=== PATIENT | female | born 1950 | race Caucasian/White ===

== ENCOUNTER → 2017-01-05 | Outpatient (CLI) | payer OTHER ==
[~2017-01-05] MED LIST: CALC-348 PO; CHOL100010 PO; MULT-190 PO; OMEG10007 PO; PTDOPS OP; QVRINH80 INH; SIMV40TA4 PO
--- NOTE | 2017-01-05 16:37 | MAMMOGRAPHY REPORT ---
BILATERAL DIGITAL SCREENING MAMMOGRAM WITH CAD: 01/05/2017 CLINICAL HISTORY: Routine screening examination. TECHNIQUE: Bilateral CC and MLO views were obtained. Current study was also evaluated with a Comput er Aided Detection (CAD) system. COMPARISON: Comparison is made to exams dated: 01/03/2016 mammogram, 01/02/2015 mammogram, 12/07/2013 mammogram, 12/05/2012 mammogram, 12/04/2011 mammogram, and 12/03/2010 mammogram - [facility]. BREAST COMPOSITION: There are scattered areas of fibroglandular density in both breasts. FINDINGS: There is a stable grouping of punctate microcalcifications in the lateral left breast that is unchanged dating back to at least 11/28/2007, therefore likely benign. There are a few stable r ound micro-calcifications in the left breast, and vascular calcification in the right breast. No ne w suspicious mass, architectural distortion or cluster of microcalcifications is seen. IMPRESSION: ACR BI-RADS CATEGORY 1: NEGATIVE There is no mammographic evidence of malignancy. A 1 year screening mammogram is recommended. The p atient will receive written notification of the results. Approximately 10% of breast cancers are not detected with mammography. A negative mammographic repor t should not delay biopsy if a clinically suggestive mass is present. Gracia Archuleta M.D. ay/:01/05/2017 15:51:23 Business Communications Instructor: Aparna GRIFFITH(R)(M), [facility] letter sent: Normal 1/2 BI-RADS Code: ACR BI-RADS Category 1: Negative
== END | disposition home or self-care (01) ==
LOC: C.MAMM 10:07
PROVIDERS: ATTEND Nurse Practitioner
DX: Z12.31 Encounter for screening mammogram for malignant neoplasm of breast (principal)

== ENCOUNTER → 2017-01-21 | Outpatient (CLI) | payer OTHER ==
[~2017-01-21] MED LIST changes: +ALBU18002 INH; +ALEN40TA2 PO; +CHOL1TAB42 PO; +MULT-506 PO; +OLOP0.1S3 OP; +PRED20TA PO; +SIMV40TA2 PO
== END | disposition home or self-care (01) ==
LOC: C.MAMM 11:21
PROVIDERS: ATTEND Nurse Practitioner
DX: M81.0 Age-related osteoporosis without current pathological fracture (principal); M85.89 Other specified disorders of bone density and structure, multiple sites

== ENCOUNTER → 2017-03-03 | Outpatient (CLI) | payer OTHER ==
[2017-03-03 09:55] LABS: CALCIUM 9.1 mg/dl (8.5-10.1)
[2017-03-03 09:59] LABS: CREATININE 0.92 mg/dl (0.60-1.20)
[2017-03-03 10:12] LABS: CALCIUM URINE 8.9 mg/dl
[2017-03-04 17:48] LABS: TOTAL PROTEIN 7.1 G/DL (6.2-8.3)
== END | disposition home or self-care (01) ==
LOC: C.LAB1850 07:56
PROVIDERS: ATTEND Internal Medicine Rheumatology
DX: M81.0 Age-related osteoporosis without current pathological fracture (principal); E61.8 Deficiency of other specified nutrient elements; E55.9 Vitamin D deficiency, unspecified

== ENCOUNTER → 2017-03-25 | Outpatient (CLI) | payer OTHER | END | disposition home or self-care (01) | LOC: C.LAB1850 09:55 | PROVIDERS: ATTEND Internal Medicine Rheumatology | DX: R77.8 Other specified abnormalities of plasma proteins (principal) ==

== ENCOUNTER → 2017-04-19 | Outpatient (CLI) | payer OTHER ==
[~2017-04-19] MED LIST changes: -ALBU18002 INH; -ALEN40TA2 PO; -CHOL1TAB42 PO; -MULT-506 PO; -OLOP0.1S3 OP; -PRED20TA PO; -SIMV40TA2 PO
[2017-04-19 13:19] LABS: BLOOD UREA NITROGEN 13 mg/dl (7-18); BUN/CREATININE RATIO 15.3 (10-20); CALCIUM 9.1 mg/dl (8.5-10.1); CARBON DIOXIDE 29 mmol/L (21-32); CHLORIDE 107 mmol/L (98-107); CREATININE 0.84 mg/dl (0.60-1.20); GLUCOSE 86 mg/dl (70-99); POTASSIUM 4.3 mmol/L (3.5-5.1); SODIUM 140 mmol/L (136-145)
[2017-04-19 13:23] LABS: CHOLESTEROL 188 mg/dl (0-200); CHOLESTEROL/HDL RATIO 3.7; HDL CHOLESTEROL 51 mg/dl; LDL CHOLESTEROL CALCULATED 107 mg/dl; TRIGLYCERIDES 150 mg/dl (0-150); VERY LOW DENSITY LIPOPROT CALC 30 mg/dl
== END | disposition home or self-care (01) ==
LOC: C.LABPVFM 07:58
PROVIDERS: ATTEND Nurse Practitioner
DX: E78.5 Hyperlipidemia, unspecified (principal); M81.0 Age-related osteoporosis without current pathological fracture

== ENCOUNTER → 2017-06-24 | Outpatient (CLI) | payer OTHER | END | disposition home or self-care (01) | LOC: C.LABPVFM 08:10 | PROVIDERS: ATTEND Internal Medicine Rheumatology | DX: M81.0 Age-related osteoporosis without current pathological fracture (principal); E55.9 Vitamin D deficiency, unspecified ==

== ENCOUNTER → 2017-08-25 | Outpatient (CLI) | payer OTHER | END | disposition home or self-care (01) | LOC: C.LABPVFM 14:17 | PROVIDERS: ATTEND Family Medicine | DX: R39.9 Unspecified symptoms and signs involving the genitourinary system (principal) ==

== ENCOUNTER 2017-08-30 10:03 | Emergency (ER) | payer OTHER ==
[~2017-08-30] VITALS: Ht 162.6 cm; Wt 70.4 kg
[2017-08-30 10:15] VITALS: TEMP 36.9; Ht 162.6 cm; Wt 70.4 kg
[2017-08-30] MEDS ORDERED: MULT-506 PO (10:42)
[2017-08-30] MEDS ORDERED: ALBU18002 INH (10:42)
[2017-08-30] MEDS ORDERED: OLOP0.1S3 OP (10:42)
[2017-08-30] MEDS ORDERED: SIMV40TA2 PO (10:42)
[2017-08-30] MEDS ORDERED: ALEN40TA2 PO (10:42)
[2017-08-30] MEDS ORDERED: OMEG10007 PO (10:42)
[2017-08-30] MEDS ORDERED: QVRINH80 INH (10:42)
[2017-08-30] MEDS ORDERED: CHOL1TAB42 PO (10:42)
[2017-08-30 11:42] LABS: BASO % 0.6 %; BASO ABS # 0.06 K/uL (0-0.2); COMPLETE YES; EOS % 1.2 %; HEMATOCRIT 44.3 % (37-47); IG% 0.2 %; LYMPH % 15.4 %; LYMPH ABS # 1.59 K/uL (1.2-3.4); MEAN CELL VOLUME 88.6 fL (80-100); MEAN CORPUSCULAR HEMOGLOBIN 29.6 pg (25-34); MEAN CORPUSCULAR HGB CONC 33.4 g/dl (32-36); MEAN PLATELET VOLUME 9.4 fL (7.4-10.4); NEUT % 66.6 %; PLATELET COUNT 507 K/uL (130-400); WHITE BLOOD COUNT 10.33 K/uL (4.8-10.8)
[2017-08-30 11:50] LABS: PROTHROMBIN TIME (PATIENT) 10.5 SECONDS (9.0-12.0)
--- NOTE | 2017-08-30 11:54 | DIAGNOSTIC IMAGING REPORT ---
LEFT FEMUR 3 VIEWS CLINICAL HISTORY: Left leg pain. FINDINGS: AP, frog-leg, and lateral views of the left femur are obtained. No prior studies are available for comparison at the time of dictation. The skeletal structures are osteopenic. There is no radiographic evidence of left femoral fracture. Mild arthritic change is seen in the hip and knee joints. Sclerosis is noted in the left sacroiliac joint and the pubic symphysis. The overlying soft tissues are within normal limits. A calcified fabella is seen posterior to the knee. IMPRESSION: Osteopenia with no radiographic evidence of left femoral fracture. Electronically signed by: Rodney Carson M.D. 08/30/2017 11:53 AM Dictated Date/Time: 08/30/2017 11:52 AM
[2017-08-30 12:05] LABS: BUN/CREATININE RATIO 17.2 (10-20); CALCIUM 8.6 mg/dl (8.5-10.1); CREATININE 0.78 mg/dl (0.60-1.20); POTASSIUM 3.9 mmol/L (3.5-5.1)
--- NOTE | 2017-08-30 12:07 | DIAGNOSTIC IMAGING REPORT ---
LEFT LOWER EXTREMITY VENOUS DOPPLER CLINICAL HISTORY: Left lower extremity pain. COMPARISON STUDY: No previous studies for comparison. TECHNIQUE: Sonography of the deep venous system of the left lower extremity was performed. Compression and augmentation were evaluated. FINDINGS: The common femoral, superficial femoral and popliteal veins were compressible. Augmentation was normal. Flow was shown within the deep calf vessels. IMPRESSION: No evidence of deep venous thrombus within the left lower extremity. Electronically signed by: Lawrence Reese M.D. 08/30/2017 12:06 PM Dictated Date/Time: 08/30/2017 12:06 PM
--- NOTE | 2017-08-30 12:16 | DIAGNOSTIC IMAGING REPORT ---
LUMBAR SPINE 5 VIEWS HISTORY: l leg pain rad through the gluteal COMPARISON: None. FINDINGS: There is no fracture. No subluxation. Mild dextroscoliosis. The sacrum appears intact. 4 mm of anterolisthesis of L4 and L5. Moderate facet degenerative changes seen within the lower lumbar spine. Large anterior osteophytes at T12-L1. Disc spaces are relatively preserved for age. IMPRESSION: 1. No fractures within the lumbar spine. 2. Mild dextroscoliosis. 3. Moderate facet osteoarthritis within the lower lumbar spine. 4. Grade I anterolisthesis of L4 on L5. Electronically signed by: Fortino Vance M.D. 08/30/2017 12:15 PM Dictated Date/Time: 08/30/2017 12:13 PM
--- NOTE | 2017-08-30 12:37 | DIAGNOSTIC IMAGING REPORT ---
CT OF THE HEAD WITHOUT CONTRAST CLINICAL HISTORY: Left leg numbness. COMPARISON STUDY: No previous studies for comparison. CT DOSE: 844.54 mGycm TECHNIQUE: Helical axial images of the head were obtained without IV contrast. Automated exposure control was utilized for the study. A dose lowering technique was utilized adhering to the principles of ALARA. FINDINGS: No acute intracranial hemorrhage, midline shift or mass effect is present. Ventricular system is normal. Basilar cisterns are patent. There are no extra-axial collections. Beckford-white differentiation is maintained. There are no findings to suggest acute dural sinus thrombosis or acute territorial infarct. There are no significant calvarial abnormalities. There is mild to moderate mucosal thickening of the ethmoid sinuses. Mastoid air cells are clear. IMPRESSION: No acute intracranial findings. Electronically signed by: Lawrence Reese M.D. 08/30/2017 12:36 PM Dictated Date/Time: 08/30/2017 12:19 PM
[2017-08-30] MEDS ORDERED: PRED20TA PO (13:09)
[2017-08-30 13:25] VITALS: BP 139/81; PULSE 83; O2SAT 95
--- NOTE | 2017-08-30 15:01 | EMERGENCY ROOM VISIT NOTE ---
History Report prepared by Derick: Yoselyn Bermudez Under the Supervision of: Dr. Willam Walden D.O. First contact with patient: 10:33 Chief Complaint: LEG PAIN,LEG INJURY Stated Complaint: LEFT LEG PAIN History of Present Illness The patient is a 67 year old female who presents to the Emergency Room with complaints of persistent left leg pain that began two weeks ago. She currently rates her discomfort as a 4/10 in severity. The patient states that two weeks ago she was dancing with her granddaughter and twisted her leg injuring it. She states that she had noticed left thigh pain and left calf pain. The patient states that she saw her PCP and was told she had levy splints and a sore tendon. She states that she was told to take Ibuprofen and Tylenol for her pain. The patient states that her pain did not get any better. She reports that she could not sleep due to the pain. The patient states that she saw her PCP last week again for her discomfort, but also for an illness that she notes is resolved. The patient reports left leg and left foot numbness for the past week. Numbness is located along the left anterior levy in the ball of the left foot. She states that she has difficulty walking secondary to the pain. The patient denies headache, change in vision, fevers, chest pain, shortness of breath, nausea, vomiting, diarrhea, pain with urination, and melena. No numbness in groin. Source of History: patient Onset: two weeks ago Position: leg (left) Symptom Intensity: 4/10 Timing: other (persistent) Associated Symptoms: + numbness (left leg and left foot) Review of Systems See HPI for pertinent positives & negatives. A total of 10 systems reviewed and were otherwise negative. Past Medical & Surgical Medical Problems: (1) Asthma (2) Hyperlipidemia, Unspecified (3) Osteoporosis Nos Family History Heart disease Hypertension Kidney disease Kidney stones Social History Smoking Status: Never Smoker Marital Status: Housing Status: lives with family Current/Historical Medications Scheduled Alendronate Sodium (Fosamax), 1 TAB PO WK Beclomethasone Dip (Qvar), 2 PUFFS INH BID Cholecalciferol (Vitamin D), 5,000 UNITS PO DAILY Fish Oil ([place]-3), 1 CAP PO UD Multivitamin (Multivitamin), 1 TAB PO DAILY Olopatadine Hcl (Patanol 0.1% Oph), 1 DROP OP BID Prednisone (Prednisone), 1 TAB PO DAILY Simvastatin (Zocor), 40 MG PO HS Scheduled PRN Albuterol Sulfate (Proair Respiclick), 1-2 PUFFS INH Q4 PRN for SOB/Wheezing Allergies Coded Allergies: No Known Allergies (Verified , 08/30/17) Physical Exam Vital Signs Date Time Temp Pulse Resp B/P (MAP) Pulse Ox O2 Delivery O2 Flow Rate FiO2 08/30/17 13:25 83 18 139/81 95 Room Air 08/30/17 12:26 82 18 137/78 96 Room Air 08/30/17 10:15 36.9 102 18 136/80 94 Room Air Physical Exam GENERAL: Sitting up in bed, alert, well appearing, well nourished, no distress, non-toxic EYE EXAM: normal conjunctiva. OROPHARYNX: no exudate, no erythema, lips, buccal mucosa, and tongue normal and mucous membranes are moist NECK: supple, no nuchal rigidity, no adenopathy, non-tender LUNGS: Clear to auscultation. Normal chest wall mechanics HEART: no murmurs, S1 normal and S2 normal ABDOMEN: abdomen soft, non-tender, normo-active bowel sounds, no masses, no rebound or guarding. BACK: Back is symmetrical on inspection and there is no deformity, no midline tenderness, no CVA tenderness. SKIN: no rashes and no bruising UPPER EXTREMITIES: upper extremities are grossly normal. LOWER EXTREMITIES: No pitting edema. Flexion and extension at hip knee, ankle, and EHL are 5/5 bilaterally, gross sensation is intact, reportedly diminished sensation on left anterior levy and footpad, DPs 2/4 and PTs 2/4. Ambulates without difficulty. NEURO EXAM: Normal sensorium. Medical Decision & Procedures ER Provider Diagnostic Interpretation: Radiology results as stated below per my review and the radiologist's interpretation: LUMBAR SPINE 5 VIEWS HISTORY: l leg pain rad through the gluteal COMPARISON: None. FINDINGS: There is no fracture. No subluxation. Mild dextroscoliosis. The sacrum appears intact. 4 mm of anterolisthesis of L4 and L5. Moderate facet degenerative changes seen within the lower lumbar spine. Large anterior osteophytes at T12-L1. Disc spaces are relatively preserved for age. IMPRESSION: 1. No fractures within the lumbar spine. 2. Mild dextroscoliosis. 3. Moderate facet osteoarthritis within the lower lumbar spine. 4. Grade I anterolisthesis of L4 on L5. Electronically signed by: Fortino Vance M.D. 08/30/2017 12:15 PM Dictated Date/Time: 08/30/2017 12:13 PM LEFT LOWER EXTREMITY VENOUS DOPPLER CLINICAL HISTORY: Left lower extremity pain. COMPARISON STUDY: No previous studies for comparison. TECHNIQUE: Sonography of the deep venous system of the left lower extremity was performed. Compression and augmentation were evaluated. FINDINGS: The common femoral, superficial femoral and popliteal veins were compressible. Augmentation was normal. Flow was shown within the deep calf vessels. IMPRESSION: No evidence of deep venous thrombus within the left lower extremity. Electronically signed by: Lawrence Reese M.D. 08/30/2017 12:06 PM Dictated Date/Time: 08/30/2017 12:[address] OF THE HEAD WITHOUT CONTRAST CLINICAL HISTORY: Left leg numbness. COMPARISON STUDY: No previous studies for comparison. CT DOSE: 844.54 mGycm TECHNIQUE: Helical axial images of the head were obtained without IV contrast. Automated exposure control was utilized for the study. A dose lowering technique was utilized adhering to the principles of ALARA. FINDINGS: No acute intracranial hemorrhage, midline shift or mass effect is present. Ventricular system is normal. Basilar cisterns are patent. There are no extra-axial collections. Beckford-white differentiation is maintained. There are no findings to suggest acute dural sinus thrombosis or acute territorial infarct. There are no significant calvarial abnormalities. There is mild to moderate mucosal thickening of the ethmoid sinuses. Mastoid air cells are clear. IMPRESSION: No acute intracranial findings. Electronically signed by: Lawrence Reese M.D. 08/30/2017 12:36 PM Dictated Date/Time: 08/30/2017 12:19 PM LEFT FEMUR 3 VIEWS CLINICAL HISTORY: Left leg pain. FINDINGS: AP, frog-leg, and lateral views of the left femur are obtained. No prior studies are available for comparison at the time of dictation. The skeletal structures are osteopenic. There is no radiographic evidence of left femoral fracture. Mild arthritic change is seen in the hip and knee joints. Sclerosis is noted in the left sacroiliac joint and the pubic symphysis. The overlying soft tissues are within normal limits. A calcified fabella is seen posterior to the knee. IMPRESSION: Osteopenia with no radiographic evidence of left femoral fracture. Electronically signed by: Rodney Carson M.D. 08/30/2017 11:53 AM Dictated Date/Time: 08/30/2017 11:52 AM Laboratory Results 08/30/17 11:04 Red Blood Count 5.00, Mean Corpuscular Volume 88.6, Mean Corpuscular Hemoglobin 29.6, Mean Corpuscular Hemoglobin Concent 33.4, Mean Platelet Volume 9.4, Neutrophils (%) (Auto) 66.6, Lymphocytes (%) (Auto) 15.4, Monocytes (%) (Auto) 16.0, Eosinophils (%) (Auto) 1.2, Basophils (%) (Auto) 0.6, Neutrophils # (Auto ) 6.89, Lymphocytes # (Auto) 1.59, Monocytes # (Auto) 1.65, Eosinophils # (Auto ) 0.12, Basophils # (Auto) 0.06 08/30/17 11:04 Test 08/30/17 11:04 White Blood Count 10.33 K/uL (4.8-10.8) Red Blood Count 5.00 M/uL (4.2-5.4) Hemoglobin 14.8 g/dL (12.0-16.0) Hematocrit 44.3 % (37-47) Mean Corpuscular Volume 88.6 fL (80-100) Mean Corpuscular Hemoglobin 29.6 pg (25-34) Mean Corpuscular Hemoglobin Concent 33.4 g/dl (32-36) Platelet Count 507 K/uL (130-400) Mean Platelet Volume 9.4 fL (7.4-10.4) Neutrophils (%) (Auto) 66.6 % Lymphocytes (%) (Auto) 15.4 % Monocytes (%) (Auto) 16.0 % Eosinophils (%) (Auto) 1.2 % Basophils (%) (Auto) 0.6 % Neutrophils # (Auto) 6.89 K/uL (1.4-6.5) Lymphocytes # (Auto) 1.59 K/uL (1.2-3.4) Monocytes # (Auto) 1.65 K/uL (0.11-0.59) Eosinophils # (Auto) 0.12 K/uL (0-0.5) Basophils # (Auto) 0.06 K/uL (0-0.2) RDW Standard Deviation 46.6 fL (36.4-46.3) RDW Coefficient of Variation 14.4 % (11.5-14.5) Immature Granulocyte % (Auto) 0.2 % Immature Granulocyte # (Auto) 0.02 K/uL (0.00-0.02) Prothrombin Time 10.5 SECONDS (9.0-12.0) Prothromb Time International Ratio 1.0 (0.9-1.1) Anion Gap 9.0 mmol/L (3-11) Est Creatinine Clear Calc Drug Dose 65.6 ml/min Estimated GFR () 89.9 Estimated GFR (Non- 77.6 BUN/Creatinine Ratio 17.2 (10-20) Calcium Level 8.6 mg/dl (8.5-10.1) Laboratory results per my review. Medications Administered Medications (Trade) Dose Ordered Sig/Nico Route Start Time Stop Time Status Last Admin Dose Admin Prednisone (PredniSONE TAB) 20 mg NOW STAT PO 08/30/17 13:09 08/30/17 13:10 DC 08/30/17 13:28 20 MG ED Course ED COURSE: Vital signs were reviewed and showed normal vitals The patients medical record was reviewed The above diagnostic studies were performed and reviewed. ED treatments and interventions as stated above. 1044: The patient was evaluated in room B5. A complete history and physical examination was performed. 1259: Upon reevaluation, the patient is resting comfortably.I discussed my findings with the patient and she understands and agrees with the treatment plan. Based on the patients age, coexisting illnesses, exam and lab findings the decision to treat as an outpatient was made. The patient remained stable while under my care. The patient appeared well at the time of discharge. Medical Decision Differential diagnosis: Etiologies such as fracture, dislocation, neurovascular compromise, compartment syndrome, soft tissue injury, as well as others were entertained. Patient is a 67-year-old female who presents to ER for left lower extremity pain. She notes the pain is on her left thigh. No weakness. No saddle paresthesias. No focal deficit. Completely neurologically intact. Complains of subjective paresthesias. Vascularly intact. Evidence without difficulty. CT head was negative to evaluate a stroke although I favor this is very unlikely. Duplex shows no clots. X-ray of the left thigh shows no obvious fracture. Patient was updated bedside. She is discharged follow-up with PCP. She is given small dose steroids as she does have some pain rating to her left gluteus into the leg. I question if this paresthesias secondary to sciatica but cannot be certain. Discussed with Pt concerning signs and symptoms to watch out for. Pt was instructed to follow up with their PCP and discussed with the patient their option to return to the ED at anytime for persistent or worsening symptoms. The appropriate anticipatory guidance and out-patient management, including indications for return to the emergency department, were explained at length to the patient and understood. Medication Reconcilliation Current Medication List: was personally reviewed by me Blood Pressure Screening Patient's blood pressure: Normal blood pressure Blood pressure disposition: Did not require urgent referral Impression Primary Impression: Leg pain, left Scribe Attestation The scribe's documentation has been prepared under my direction and personally reviewed by me in its entirety. I confirm that the note above accurately reflects all work, treatment, procedures, and medical decision making performed by me. Departure Information Dispostion Home / Self-Care Prescriptions Prednisone (Prednisone) 20 Mg Tab 1 TAB PO DAILY for 5 Days, #5 TAB Prov: Willam Walden, DO 08/30/17 Referrals Renee Redd C.R.N.P (PCP) Forms HOME CARE DOCUMENTATION FORM, IMPORTANT VISIT INFORMATION Patient Instructions Leg Low Back Pain Poss Causes, My [facility] Additional Instructions Please follow up with your primary care doctor with in the next 24 hours. Any worsening of your symptoms, please return to the ED immediately. This includes any fevers greater than 100.4, worsening pain, chest pain, shortness breath, persistent nausea, vomiting, unable to eat or drink, or any other concerning signs or symptoms from your standpoint. Please take steroids as prescribed. Please continue Motrin or Tylenol as needed for pain.
== END 2017-08-30 13:30 | disposition home or self-care (01) ==
LOC: C.EDB 10:05
DX: M79.605 Pain in left leg (principal); R20.2 Paresthesia of skin; J45.909 Unspecified asthma, uncomplicated; E78.5 Hyperlipidemia, unspecified; M81.0 Age-related osteoporosis without current pathological fracture; Z82.49 Family history of ischemic heart disease and other diseases of the circulatory system; Z84.1 Family history of disorders of kidney and ureter

== ENCOUNTER → 2017-09-27 | Outpatient (CLI) | payer OTHER ==
[~2017-09-27] MED LIST changes: +ALBU18002 INH; +ALEN40TA2 PO; -CALC-348 PO; -CHOL100010 PO; +CHOL1TAB42 PO; -MULT-190 PO; +MULT-506 PO; +OLOP0.1S3 OP; -PTDOPS OP; +SIMV40TA2 PO; -SIMV40TA4 PO
== END | disposition home or self-care (01) ==
LOC: C.LABPVFM 08:56
PROVIDERS: ATTEND Nurse Practitioner
DX: G62.9 Polyneuropathy, unspecified (principal)

== ENCOUNTER → 2017-11-30 | Outpatient (CLI) | payer OTHER ==
--- NOTE | 2017-11-30 16:30 | DIAGNOSTIC IMAGING REPORT ---
MRI OF THE LUMBAR SPINE WITHOUT CONTRAST CLINICAL HISTORY: Lumbar radiculopathy. Spinal stenosis. COMPARISON STUDY: Lumbar spine radiographs August 30, 2017. TECHNIQUE: Utilizing a 1.5 Erica magnet and dedicated coil, multiplanar, multiecho imaging of the lumbar spine was performed without IV contrast. FINDINGS: For purposes of numbering on this exam, the L5-S1 disc space is assigned to axial image 23 of 25. 3 mm of anterolisthesis of L4 and L5 is unchanged since radiographs of August 30, 2017. There is no marrow edema or marrow replacement. Conus terminates at the mid L1 level. There is no intracanalicular mass or fluid collection. Scattered T1 and T2 hyperintense foci could reflect hemangiomas or focal areas of fat. Paravertebral soft tissues are unremarkable. There is mild dextroscoliosis of the lumbar spine. L1-2: There is minimal disc bulge. The central canal and neural foramen are patent. L2-3: There is minimal disc bulge. Central canal and neural foramina patent. L3-4: There is mild disc bulge, ligamentous hypertrophy and facet arthrosis. The findings result in mild narrowing of the central canal and lateral recesses. The neural foramen are patent. L4-5: There is grade I anterolisthesis with moderate facet arthrosis. Central canal and neural foramen are patent. L5-S1: There is facet arthrosis. Central canal is patent. There is mild bilateral neural foraminal stenosis. IMPRESSION: 1. No acute abnormality within the lumbar spine by MRI. 2. Mild dextroscoliosis of lumbar spine and grade I anterolisthesis of L4 and L5. 3. Mild multilevel degenerative disc disease. Moderate multilevel facet arthrosis. 4. Patent central canal. Mild multilevel neural foraminal stenosis. Electronically signed by: Lawrence Reese M.D. 11/30/2017 4:28 PM Dictated Date/Time: 11/30/2017 4:23 PM
== END | disposition home or self-care (01) ==
LOC: C.MRI 15:23
PROVIDERS: ATTEND Psychiatry & Neurology Neurology
DX: M48.061 Spinal stenosis, lumbar region without neurogenic claudication (principal); M54.16 Radiculopathy, lumbar region

== ENCOUNTER → 2017-12-27 | Day surgery (SDC) | payer OTHER ==
[2017-12-07 11:25] VITALS: Ht 162.6 cm; Wt 70.5 kg
[~2017-12-27] VITALS: Ht 162.6 cm; Wt 70.5 kg
[~2017-12-27] MED LIST changes: +B-COTAB53 PO; +BIOTCAP2 PO; +CALC-354 PO; +GABA-113 PO; +LIDOCAINE HCL 2% 2 ML VIAL (20MG/ML) ONE; +MULT-188 PO; -MULT-506 PO; +PROPOFOL IV EMULSION 10 MG/ML 20 ML VIAL IV ONE; +SODIUM CHLORIDE 0.9% 500ML 500 ML IV ONE
[2017-12-27 13:43] VITALS: TEMP 37.2
--- NOTE | 2017-12-27 14:10 | Endo History and Physical ---
History & Physical Date of Service: Dec 27, 2017. Chief Complaint: HX O POLYPS Referring Physician: MILI SALDIVAR History of Present Illness 67 yo CF who presents for colonoscopy secondary to history of colon polyps. Past Surgical History Hx Cardiac Surgery: No Hx Internal Defibrillator: No Hx Pacemaker: No Hx Abdominal Surgery: Yes (TUBAL LIGATION) Hx of Implantable Prosthesis: No Hx Post-Op Nausea and Vomiting: No Hx Cancer Surgery: No Hx Thoracic Surgery: No Hx Orthopedic: Yes (RT THUMB REALIGNMENT, LT LITTLE FINGER FX REPAIR) Hx Urinary Tract Surgery: No Family History Polyp Social History Smoking Status: Never Smoker Hx Substance Use: No Hx Alcohol Use: No Allergies Coded Allergies: No Known Allergies (Verified , 12/07/17) Current Medications Reported Home Medications Medications Dose Route/Sig Max Daily Dose Days Date Category Dose Instructions B Complex (B-Complex W/ Folic Acid) 1 Tab Tab 1 Tab PO DAILY 12/07/17 Reported Neurontin (Gabapentin) 300 Mg Cap 300 Mg PO HS 12/07/17 Reported Biotin 5000 (Biotin) 5 Mg Cap 1 Cap PO DAILY 12/07/17 Reported Caltrate 600+D (Calcium Carbonate-Cholecalcife) 1 Tab Tab 1 Tab PO DAILY 12/07/17 Reported Vitamin D (Cholecalciferol) 5,000 Unit Tab 5,000 Units PO DAILY 08/30/17 Reported Fosamax (Alendronate Sodium) Unknown Strength Tab 1 Tab PO WK 08/30/17 Reported WEDNESDAY Zocor (Simvastatin) 40 Mg Tab 40 Mg PO HS 08/30/17 Reported Qvar (Beclomethasone Dip) 80 Mcg/Act Aer 2 Puffs INH BID 08/30/17 Reported Proair Respiclick (Albuterol Sulfate) 108 Mcg/Act Aer 1-2 Puffs INH Q4 PRN 08/30/17 Reported Patanol 0.1% Oph (Olopatadine Hcl) 0.1 % Tresa 1 Drop OP BID PRN 08/30/17 Reported [place]-3 (Fish Oil) 1 Ea Cap 1 Cap PO DAILY 08/30/17 Reported Vital Signs Weight (Kilograms): 70.45 Height (Feet): 5 Height (Inches): 4 Date Time Temp Pulse Resp B/P (MAP) Pulse Ox O2 Delivery O2 Flow Rate FiO2 12/27/17 13:43 37.2 86 20 150/79 (102) 96 Room Air Physical Exam General Appearance: WD/WN, no apparent distress Respiratory/Chest: Auscultation: breath sounds normal Cardiovascular: Heart Auscultation: RRR Abdomen: Bowel Sounds: normal Inspection & Palpation: soft, non-distended, no tenderness, guarding & rebound Assessment and Plan Assessment: 67 yo CF who presents for colonoscopy secondary to history of colon polyps. Plan: Proceed with colonoscopy.
--- NOTE | 2017-12-27 14:37 | Discharge Instructions ---
Endoscopy Patient Instructions Date / Procedure(s) Performed Dec 27, 2017. Colonoscopy Allergy Information Coded Allergies: No Known Allergies (Verified , 12/07/17) Discharge Date / Findings Dec 27, 2017. Internal hemorrhoids Medication Instructions OK to resume all medications today as prescribed Reported Home Medications Medications Dose Route/Sig Max Daily Dose Days Date Category Dose Instructions B Complex (B-Complex W/ Folic Acid) 1 Tab Tab 1 Tab PO DAILY 12/07/17 Reported Neurontin (Gabapentin) 300 Mg Cap 300 Mg PO HS 12/07/17 Reported Biotin 5000 (Biotin) 5 Mg Cap 1 Cap PO DAILY 12/07/17 Reported Caltrate 600+D (Calcium Carbonate-Cholecalcife) 1 Tab Tab 1 Tab PO DAILY 12/07/17 Reported Vitamin D (Cholecalciferol) 5,000 Unit Tab 5,000 Units PO DAILY 08/30/17 Reported Fosamax (Alendronate Sodium) Unknown Strength Tab 1 Tab PO WK 08/30/17 Reported WEDNESDAY Zocor (Simvastatin) 40 Mg Tab 40 Mg PO HS 08/30/17 Reported Qvar (Beclomethasone Dip) 80 Mcg/Act Aer 2 Puffs INH BID 08/30/17 Reported Proair Respiclick (Albuterol Sulfate) 108 Mcg/Act Aer 1-2 Puffs INH Q4 PRN 08/30/17 Reported Patanol 0.1% Oph (Olopatadine Hcl) 0.1 % Tresa 1 Drop OP BID PRN 08/30/17 Reported [place]-3 (Fish Oil) 1 Ea Cap 1 Cap PO DAILY 08/30/17 Reported Provider Instructions Activity Restrictions - No exercising or heavy lifting for 24 hours. - Do not drink alcohol the day of the procedure. - Do not drive a car or operate machinery until the day after the procedure. - Do not make any important decisions or sign important papers in 24 hours after the procedure. Following Day: - Return to full activity which may include returning to work/school. Diet Start your diet with liquids and light foods (jello, soup, juice, toast). Then eat your usual diet if not nauseated. Treatment For Common After Affects For mild abdominal pain, bloating, or excessive gas: - Rest - Eat lightly - Lie on right side Follow-Up Information Follow-up with MILI SALDIVAR as scheduled Anesthesia Information What You Should Know You have had a procedure that required some medicine to reduce anxiety and discomfort. This treatment is called moderate sedation. After receiving the treatment, you may be sleepy, but you will be able to breathe on your own. The effects of the treatment may last for several hours. Follow these instructions along with Activity/Diet recommendations noted above: * Do NOT do anything where dizziness or clumsiness would be dangerous. * Rest quietly at home today, then you can be up and about tomorrow. * Have a responsible person stay with you the rest of today. * You may have had an I.V. today. If so, you may take the dressing off later today. Recommendations Call your doctor if: * Trouble breathing * Continuous vomiting for more than 24 hours * Temperature above 101 degrees * Severe abdominal pain or bloating * Pain not relieved by pain medicine ordered * There is increased drainage or redness from any incision * A large amount of rectal bleeding greater than 2-3 tablespoons. (If you had a polyp/s removed or have hemorrhoids, a small amount of blood - from the rectum is to be expected.) * You have any unanswered questions or concerns. IN THE EVENT OF A SERIOUS EMERGENCY, GO TO THE NEAREST EMERGENCY ROOM Your discharge instructions were prepared by provider Regino Ortega. Patient Instructions Signature Page Allan Montoya Patient (or Guardian) Signature/Date: I have read and understand the instructions given to me by my caregivers. Caregiver/RN/Doctor Signature/Date: The above-named patient and/or guardian has received patient instructions on this date. + Original Patient Signature Page (only) stays with chart. Please make copy for patient.
--- NOTE | 2017-12-27 14:42 | GI REPORT ---
Procedure Date: 12/27/2017 1:36 PM THIS REPORT HAS BEEN AMENDED Addendum Number: 1 Addendum Date: 12/27/2017 3:35:58 PM No specimens were collected during this exam, and therefore, no pathology is pending. No repeat colonoscopy due to patient's age and lack of adenomas. Procedure: Colonoscopy Indications: Screening for colorectal malignant neoplasm Medicines: Monitored Anesthesia Care Complications: No immediate complications. Estimated Blood Loss: Estimated blood loss: none. Procedure: Pre-Anesthesia Assessment: - Prior to the procedure, a History and Physical was performed, and patient medications and allergies were reviewed. The patient's tolerance of previous anesthesia was also reviewed. The risks and benefits of the procedure and the sedation options and risks were discussed with the patient. All questions were answered, and informed consent was obtained. Prior Anticoagulants: The patient has taken no previous anticoagulant or antiplatelet agents. ASA Grade Assessment: II - A patient with mild systemic disease. After reviewing the risks and benefits, the patient was deemed in satisfactory condition to undergo the procedure. After I obtained informed consent, the scope was passed under direct vision. Throughout the procedure, the patient's blood pressure, pulse, and oxygen saturations were monitored continuously. The Scope was introduced through the anus and advanced to the terminal ileum. The colonoscopy was performed without difficulty. The patient tolerated the procedure well. The quality of the bowel preparation was good. The terminal ileum, ileocecal valve, appendiceal orifice, and rectum were photographed. Findings: The perianal and digital rectal examinations were normal. Non-bleeding internal hemorrhoids were found during retroflexion. The hemorrhoids were small. Impression: - Non-bleeding internal hemorrhoids. - No specimens collected. Recommendation: - Resume previous diet. - Continue present medications. - Repeat colonoscopy for surveillance based on pathology results. - Return to primary care physician as previously scheduled. Regino Yasir Ortega DO 12/27/2017 2:41:43 PM This report has been signed electronically. Note Initiated On: 12/27/2017 1:36 PM I attest to the content of the Intraoperative Record and orders documented therein, exceptions below Regino GTaylor Ortega, DO 12/27/2017 3:36:44 PM This report has been signed electronically.
--- NOTE | 2017-12-27 15:04 | Anesthesiology Progress Note ---
Anesthesia Post Op Note Date & Time Dec 27, 2017 at 15:04 Vital Signs Pain Intensity: 0 Vital Signs Past 12 Hours Date Time Temp Pulse Resp B/P (MAP) Pulse Ox O2 Delivery O2 Flow Rate FiO2 12/27/17 14:52 78 16 120/73 (89) 96 Room Air 12/27/17 14:38 75 16 118/63 (81) 96 Room Air 12/27/17 13:43 37.2 86 20 150/79 (102) 96 Room Air Notes Mental Status: alert / awake / arousable, participated in evaluation Pt Amnestic to Procedure: Yes Nausea / Vomiting: adequately controlled Pain: adequately controlled Airway Patency, RR, SpO2: stable & adequate BP & HR: stable & adequate Hydration State: stable & adequate Anesthetic Complications: no major complications apparent
[2017-12-27 15:07] VITALS: BP 138/72; PULSE 79; O2SAT 96
== END | disposition home or self-care (01) ==
LOC: C.GI 13:17
PROVIDERS: ATTEND Internal Medicine
DX: Z12.11 Encounter for screening for malignant neoplasm of colon (principal); K64.8 Other hemorrhoids; J45.909 Unspecified asthma, uncomplicated; M19.90 Unspecified osteoarthritis, unspecified site; Z86.010 Personal history of colon polyps; Z98.51 Tubal ligation status; Z98.890 Other specified postprocedural states; Z79.899 Other long term (current) drug therapy; Z83.71 Family history of colonic polyps

== ENCOUNTER → 2018-01-11 | Outpatient (CLI) | payer OTHER ==
[~2018-01-11] MED LIST changes: -LIDOCAINE HCL 2% 2 ML VIAL (20MG/ML) ONE; -MULT-188 PO; -PROPOFOL IV EMULSION 10 MG/ML 20 ML VIAL IV ONE; -SODIUM CHLORIDE 0.9% 500ML 500 ML IV ONE
--- NOTE | 2018-01-12 07:55 | MAMMOGRAPHY REPORT ---
BILATERAL DIGITAL SCREENING MAMMOGRAM TOMOSYNTHESIS WITH CAD: 01/11/2018 CLINICAL HISTORY: Routine screening. TECHNIQUE: Breast tomosynthesis in addition to standard 2D mammography was performed. Current study was also evaluated with a Computer Aided Detection (CAD) system. COMPARISON: Comparison is made to exams dated: 01/03/2016 mammogram, 01/05/2017 mammogram, 01/02/2015 m ammogram, 12/07/2013 mammogram, 12/05/2012 mammogram, and 12/04/2011 mammogram - [facility] enter. BREAST COMPOSITION: There are scattered areas of fibroglandular density in both breasts. FINDINGS: There are mild vascular calcifications and a few scattered and grouped benign-appearing pun ctate microcalcifications which are stable comparing to prior mammograms. No suspicious mass, archite ctural distortion or cluster of suspicious microcalcifications is seen. IMPRESSION: ACR BI-RADS CATEGORY 1: NEGATIVE There is no mammographic evidence of malignancy. A 1 year screening mammogram is recommended. The pa tient will receive written notification of the results. Approximately 10% of breast cancers are not detected with mammography. A negative mammographic report should not delay biopsy if a clinically suggestive mass is present. Gracia Archuleta M.D. ay/:01/11/2018 16:18:48 Balance Truing Inspector: [place] [employer])(), [facility] letter sent: Normal 1/2 BI-RADS Code: ACR BI-RADS Category 1: Negative
== END | disposition home or self-care (01) ==
LOC: C.MAMM 08:53
PROVIDERS: ATTEND Nurse Practitioner
DX: Z12.31 Encounter for screening mammogram for malignant neoplasm of breast (principal)